=== PATIENT | female | born 1955 | race Caucasian/White ===

== ENCOUNTER 2017-04-17 02:11 | Inpatient (IN) | payer OTHER ==
[~2017-04-17] VITALS: Ht 170.2 cm; Wt 72.2 kg
[~2017-04-17 02:11] MED LIST: AUGMENTIN875TAB PO; MUCINEX600 MG PO; SIMVASTATIN5 MG; SYNTHROID25 MCG; TESSALON PER100 MG PO; ZOLOFT100 MG PO
--- NOTE | 2017-04-17 02:19 | NUR ---
PT AMBULATED TO RM 13 W/ STEADY GAIT.
[2017-04-17 02:41] LABS: HEMATOCRIT 39.9 % (37.0-47.0); HEMOGLOBIN 13.8 g/dl (12.0-16.0); IMMATURE GRANULOCYTES 0.2 % (0.0-1.0); MEAN CELL VOLUME 94.3 fL CALC (80.0-100.0); MEAN CORPUSCULAR HGB 32.6 pG CALC (26.0-32.0); MEAN CORPUSCULAR HGB CONC 34.6 g/L CALC (32.0-36.0); NEUT# 6.28 thou/uL (2.00-7.15); RED BLOOD COUNT 4.23 mill/uL (4.20-5.60); RED CELL DISTRI WIDTH 12.7 % (11.5-15.5)
[2017-04-17 02:42] LABS: URINE BILIRUBIN - DIPSTICK NEGATIVE (NEGATIVE); URINE BLOOD DIPSTICK LARGE (NEGATIVE); URINE CLARITY CLEAR; URINE COLOR YELLOW; URINE GLUCOSE - DIPSTICK NEGATIVE (NEGATIVE); URINE KETONE NEGATIVE (NEGATIVE); URINE LEUK ESTERASE NEGATIVE (NEGATIVE); URINE NITRITE - DIPSTICK NEGATIVE (Negative); URINE PH 5.5 (4.5-8.0); URINE PROTEIN - DIPSTICK 30 mg/dL (NEG-TRACE); URINE SPECIFIC GRAVITY >=1.030; URINE UROBILINOGEN - DIPSTICK 0.2 E.U./dL (0.2)
[2017-04-17 02:51] LABS: URINE BACTERIA FEW hpf; URINE CALCIUM OXALATE CRYSTALS FEW lpf; URINE SQUAMOUS EPITHELIAL CELL FEW EPI/hpf (0-FEW)
--- NOTE | 2017-04-17 02:54 | NUR ---
FAMILY AT BEDSIDE. MKEDS GIVEN. PAIN DECREASED.
[2017-04-17 02:55] LABS: ALBUMIN 4.7 g/dL (3.2-5.0); ALKALINE PHOSPHATASE 125 u/l (38-126); AMYLASE 58 u/l (30-110); ANION GAP 19 (6-22 (CALC)); BILIRUBIN, TOTAL 0.6 mg/dL (0.0-1.4); BUN 14 mg/dL (8-23); BUN/CREATININE RATIO 18 (12-20 (CALC)); CARBON DIOXIDE 24 mmol/l (22-30); CHLORIDE 107 mmol/l (95-108); CREATININE 0.8 mg/dL (0.5-1.0); GFR > 60 ML/MIN (>=60 (CALC)); GFR FOR AFR.AMER. > 60 ML/MIN (>=60 (CALC)); LIPASE 133 u/l (23-300); POTASSIUM 3.8 mmol/l (3.5-5.1); SGOT/AST 22 u/l (9-36); SGPT/ALT 24 u/l (11-66); SODIUM 146 mmol/l (137-146); TOTAL PROTEIN 7.5 g/dL (6.3-8.2)
--- NOTE | 2017-04-17 03:44 | NUR ---
AMBULATED TO BATHROOM
--- NOTE | 2017-04-17 04:55 | NUR ---
RESTING QUIETLY AWAITING ADMISSION.
--- NOTE | 2017-04-17 05:30 | NUR ---
Admission Note Report Given to: CINDY CABALLERO Transported by: Wheelchair X Stretcher Transported with: X Nurse Transporter X Patent IV O2 Communication Lecturer
--- NOTE | 2017-04-17 06:17 | NUR ---
PATIENT ARRIVED TO THE FLOOR IN STABLE CONDITION VIA STRETCHER AND ACCOMPANIED BY ED NURSE. PT ALERT AND ORIENTED. PT WEIGHED AND SETTLED TO BED. ORIENT PATIENT TO ROOM CALL SYSTEM. BED IN LOW POSITION AND CALL LIGHT IN REACH.
[2017-04-17 06:45] VITALS: BP 115/64
[2017-04-17 07:25] VITALS: BP 100/64
--- NOTE | 2017-04-17 07:25 | NUR ---
PT ALERT AND ORIENTED X3. ASSESMENT COMPLETED AT THIS TIME. LUNG SOUNDS CLEAR BILATERALLY. RESPIRATIONS EVEN AND UNLABORED. HEART SOUNDS NORMAL AT A RATE OF 83. PERRL. HYPOACTIVE BS IN ALL 4 QUADRANTS. NEUROLOGICALLY INTACT. RESORT MANAGER EQUAL, STRONG APICAL AND PEDAL PULSES. SKIN INTACT: NO SWELLING OR EDEMA. #20 IN THE LAC; TEGADERM INTACT AND NO REDESS OR SWELLING PT NO COMPLAINING OF ANY PAIN AT THIS TIME. PT ASKED IF SHE HAS VOIDED ANY SINCE SHE REMOVED HAT FROM TOILET SHE STATES " OH YES NUMEROUS TIMES". PT INSTRUCTED TO KEEP HAT IN TOILET SINCE SHE IS HERE FOR URINARY TYPE ISSUES. PT VOICES UNDERSTANDING. CALL STREET IN REACH. PT
--- NOTE | 2017-04-17 07:30 | NUR ---
REPORT RECEIVED FROM CINDY ACBALLERO. PT SITTING UPRIGHT IN BED. DENIES PAIN. REPORTING OF CONCERNS ENCOURAGED. PLAN OF CARE DISCUSSED. NPO STATUS REVIEWED. CALL LIGHT REVIEWED AND IN REACH. PT STATES UNDERSTANDING.
--- NOTE | 2017-04-17 09:20 | NUR ---
PT LEFT FLOOR VIA WHEELCHAIR ACCOMPANIED BY VOLUNTEERS X 2 AND ASHLEIGH MCMAHAN.
[2017-04-17 10:29] LABS: CALCULATED LDLCHOLESTEROL 54 mg/dL (62-129 (CALC)); CHOLESTEROL HDL RATIO 2.5 (<4.4 (CALC)); HDL CHOLESTEROL 51 mg/dL (>=40); TOTAL CHOLESTEROL 127 mg/dl (0-199); TOTAL TRIGLYCERIDES 112 mg/dl (30-149); VLDL CHOLESTROL 22 mg/dl (1-41 (CALC))
[2017-04-17 11:20] VITALS: BP 123/71
--- NOTE | 2017-04-17 12:20 | NUR ---
PT SITTING UPRIGHT IN BED. DENIES PAIN. TOLERATED LUNCH W/O NAUSEA. AT BEDSIDE. WILL CONTINUE TO MONITOR.
[2017-04-17 15:37] VITALS: BP 103/56
[2017-04-17] MEDS ORDERED: SIMVASTATIN20 MG PO (15:55)
[2017-04-17] MEDS ORDERED: LEVOTHYROXIN112 MC1 PO (15:57)
--- NOTE | 2017-04-17 16:13 | NUR ---
Patient feels okay. Reported doses of medications and last time taken. c
--- NOTE | 2017-04-17 19:15 | NUR ---
REPORT RECEIVED FROM PREVIOUS SHIFT. PT SITTING UP IN BED, DENIES ANY NEEDS AT THIS TIME. BED IN LOW POSTITION, CALL LIGHT IN REACH, TOP SIDE RAILS UP. PT UP AD ALICE, DENIES DIZZINESS OR WEAKNESS. NACL RUNNING; IV SITE PATENT. RESP EVEN AND UNLABORED. WILL CONTINUE TO MONITOR.
[2017-04-17 19:55] VITALS: BP 110/63
[2017-04-17 20:45] VITALS: BP 119/52
--- NOTE | 2017-04-17 20:45 | NUR ---
ASSESSMENT AND VS CHARTED. DENIES PAIN. ENCOURAGED FLUIDS, JUICE AND SNACK GIVEN TO PATIENT. CONSENT SIGNED FOR MORNING PROCEDURE. IV FLUIDS HANGING. BED IN LOW POSITION, CALL LIGHT IN REACH. PT WISHES TO REST.
[2017-04-18] VITALS (7 sets, daily range): BP systolic 101–134; BP diastolic 51–82
--- NOTE | 2017-04-18 00:05 | NUR ---
IN TO CHECK ON PATIENT. LIGHTS OUT WITH NIGHTLIGHTS ON. PT SUPINE, SLIGHTLY SNORING, RESP EVEN AND UNLABORED. NO MOVEMENT WITH ENTRANCE TO ROOM. FLUIDS RUNNING, BED IN LOW POSTION AND CALL LIGHT IN REACH.
--- NOTE | 2017-04-18 05:50 | NUR ---
PT SUPINE IN BED, RESP EVEN AND UNLABORED. MOVED AROUND UPON RN ENTRANCE IN ROOM BUT DID NOT OPEN EYES. IV FLUIDS RUNNING, CALL LIGHT IN REACH, BED IN LOW POSITION.
[2017-04-18 05:58] LABS: HEMATOCRIT 36.2 % (37.0-47.0); HEMOGLOBIN 12.3 g/dl (12.0-16.0); IMMATURE GRANULOCYTES 0.2 % (0.0-1.0); MEAN CELL VOLUME 96.5 fL CALC (80.0-100.0); MEAN CORPUSCULAR HGB 32.8 pG CALC (26.0-32.0); NEUT# 2.06 thou/uL (2.00-7.15); RED BLOOD COUNT 3.75 mill/uL (4.20-5.60)
[2017-04-18 06:00] LABS: ANION GAP 15 (6-22 (CALC)); BUN 12 mg/dL (8-23); BUN/CREATININE RATIO 17 (12-20 (CALC)); CARBON DIOXIDE 25 mmol/l (22-30); CHLORIDE 110 mmol/l (95-108); CREATININE 0.7 mg/dL (0.5-1.0); GFR > 60 ML/MIN (>=60 (CALC)); GFR FOR AFR.AMER. > 60 ML/MIN (>=60 (CALC)); MAGNESIUM 1.7 mg/dL (1.6-2.3); POTASSIUM 4.5 mmol/l (3.5-5.1); SODIUM 146 mmol/l (137-146)
--- NOTE | 2017-04-18 07:00 | NUR ---
REPORT RECEIVED FROM CINDY RAMIRES. PT SITTING UPRIGHT IN BED. DENIES PAIN. NPO STATUS REVIEWED. PLAN OF CARE REVIEWED. PLAN OF SX THIS AM CONFIRMED WITH PT. CONSENT OBTAINED PER DR. SEWELL. PT STATES UNERSTANDING.
--- NOTE | 2017-04-18 12:00 | NUR ---
DR. BAGLEY IN TO SEE PT AT THIS TIME.
[2017-04-18] MEDS ORDERED: TRAMADOL HCL50 MG PO (13:08)
--- NOTE | 2017-04-18 15:49 | NUR ---
Discharge instructions given. Patient verbalizes understanding of same. Discharged in stable condition via Wheelchair to Home with spouse. All belongings sent with pt.
[2017-04-24] MEDS ORDERED: PERCOCET 5/321 COMBO PO ×2 (10:57→10:58)
[2017-04-29] MEDS ORDERED: PERCOCET 5/325M1 TAB PO (14:34)
[2017-04-29] MEDS ORDERED: PYRIDIUM200 MG PO (14:34)
[2017-04-29] MEDS ORDERED: LEVSIN0.125 MG PO (14:34)
== END 2017-04-18 15:43 | disposition home or self-care (01) | DRG 694 ==
LOC: ED 02:11 → ED-I 04:00 → ED 05:13 → MS2 05:14
PROVIDERS: Emergency Medicine; Nurse Practitioner Family; ADMIT Internal Medicine; ATTEND Internal Medicine
PROC: 0T778DZ Dilation of Left Ureter with Intraluminal Device, Via Natural or Artificial Opening Endoscopic (ICD-10-PCS; principal; 2017-04-18)
PROC: BT1FZZZ Fluoroscopy of Left Kidney, Ureter and Bladder (ICD-10-PCS; 2017-04-18)
DX: N20.1 Calculus of ureter (principal); E03.9 Hypothyroidism, unspecified; E78.5 Hyperlipidemia, unspecified; F32.9 Major depressive disorder, single episode, unspecified
CPT/HCPCS: Q9967

== ENCOUNTER → 2017-04-29 | Day surgery (SDC) | payer OTHER ==
[~2017-04-29] VITALS: Ht 170.2 cm; Wt 71.7 kg
[~2017-04-29] MED LIST changes: +LEVOTHYROXIN112 MC1 PO; +LEVSIN0.125 MG PO; +PERCOCET 5/321 COMBO PO; +PERCOCET 5/325M1 TAB PO; +PYRIDIUM200 MG PO; +SIMVASTATIN20 MG PO; +TRAMADOL HCL50 MG PO
[2017-04-29 15:39] VITALS: BP 122/68
== END | disposition home or self-care (01) | DRG 670 ==
LOC: ORM 10:57
PROVIDERS: ATTEND Urology
PROC: 0TC78ZZ Extirpation of Matter from Left Ureter, Via Natural or Artificial Opening Endoscopic (ICD-10-PCS; principal; 2017-04-29)
PROC: 0T778DZ Dilation of Left Ureter with Intraluminal Device, Via Natural or Artificial Opening Endoscopic (ICD-10-PCS; 2017-04-29)
DX: N20.1 Calculus of ureter (principal)
CPT/HCPCS: J1956; Q9967